=== PATIENT | male | born 1985 | race Caucasian/White ===

== ENCOUNTER → 2016-05-12 | Outpatient (CLI) | payer MEDICAID ==
[2016-05-12 10:10] LABS: ABSOLUTE BASOPHILS # (AUTO) 0.1 10^3/uL (0.0-0.2); ABSOLUTE EOSINOPHILS # (AUTO) 0.2 10^3/uL (0.0-0.6); ABSOLUTE MONOCYTES (AUTO) 0.7 10^3/uL (0.1-1.4); ABSOLUTE NEUT (AUTO) 2.8 10^3/uL (1.7-8.2); EOSINOPHILS % (AUTO) 3.7 % (0-6); HEMOGLOBIN 17.7 g/dL (13.5-17.0); HGB HCT DIFFERENCE 3.1; LYMPHOCYTES % (AUTO) 34.2 % (13-45); MEAN CORPUSCULAR HEMOGLOBIN 30.5 pg (27.0-33.4); MEAN CORPUSCULAR HGB CONC 35.3 g/dL (32.0-36.0); MEAN CORPUSCULAR VOLUME 86 fl (80-97); MONOCYTES % (AUTO) 11.6 % (3-13); RED BLOOD COUNT 5.79 10^6/uL (4.35-5.55); RED CELL DISTRIBUTION WIDTH 13.9 % (11.5-14.0); SEGMENTED NEUTROPHILS % (AUTO) 49.5 % (42-78); WHITE BLOOD COUNT 5.7 10^3/uL (4.0-10.5)
[2016-05-12 10:26] LABS: ALANINE AMINOTRANSFERASE 48 U/L (21-72); ALBUMIN 4.2 g/dL (3.5-5.0); ALKALINE PHOSPHATASE 100 U/L (38-126); ANION GAP 10 (5-19); ASPARTATE AMINO TRANSFERASE 31 U/L (17-59); BLOOD UREA NITROGEN 17 mg/dL (7-20); CALCIUM 9.6 mg/dL (8.4-10.2); CARBON DIOXIDE 25 mmol/L (22-30); CHLORIDE 103 mmol/L (98-107); CREATININE RESULT 1.03 mg/dL (0.52-1.25); Direct HDL 38 mg/dL (>40); GLUCOSE 86 mg/dL (75-110); POTASSIUM 4.3 mmol/L (3.6-5.0); SODIUM 138.3 mmol/L (137-145); TOTAL PROTEIN 7.9 g/dL (6.3-8.2); TRIGLYCERIDES 220 mg/dL (<150)
[2016-05-12 10:38] LABS: DIRECT LDL 115 mg/dL (<100)
== END ==
LOC: OD 08:51
DX: R06.02 Shortness of breath (principal); M54.5 Low back pain; Z79.899 Other long term (current) drug therapy
CPT/HCPCS: 36415; 71020; 72110; 80053; 80061; 83036; 84443; 85025

== ENCOUNTER → 2016-05-26 | Outpatient (CLI) | payer MEDICAID ==
[2016-05-26 09:38] LABS: FREE T3 3.64 pg/mL (2.77-5.27)
== END ==
LOC: OD 08:04
DX: E03.9 Hypothyroidism, unspecified (principal); E66.9 Obesity, unspecified; Z79.899 Other long term (current) drug therapy
CPT/HCPCS: 36415; 84439; 84481; 86376

== ENCOUNTER 2016-06-25 23:03 | Emergency (ER) | payer MEDICAID ==
--- NOTE | 2016-06-26 04:42 | ER Document Report ---
HPI - HPI Patient complains to provider of: upper back pain, chronic pilonidial cyst Onset: Other Quality of pain: Achy Severity: Severe Pain Level: 5 Context: Patient presents to the emergency department with complaints of upper back pain and chronic pilonidal cyst. He reports he is scheduled for surgery for the pilonidal cyst on July 03 for the pilonidal cyst. He also reports that 2 months ago his upper back started hurting. He reports it hurts most when upon waking. He reports after that after he moves around in the pain decreases. Denies trauma. Denies fever vomiting diarrhea. Denies trauma. Denies recent lifting something heavy. Denies fever vomiting diarrhea. Associated Symptoms: None Exacerbated by: Other - sleeping Relieved by: Other - stretching, moving around Similar symptoms previously: Yes Recently seen / treated by doctor: Yes - DERM Skin Color: Normal Past Medical History - General Information source: Patient - Social History Smoking Status: Current Every Day Smoker Cigarette use (# per day): Yes Frequency of alcohol use: None Drug Abuse: None Lives with: Family Family History: Reviewed & Not Pertinent Patient has suicidal ideation: No Patient has homicidal ideation: No Renal/ Medical History: Denies: Hx Peritoneal Dialysis GI Medical History: Reports: Hx Ulcer Skin Medical History: Denies Hx MRSA - pilonidial cyst Past Surgical History: Reports: Hx Abdominal Surgery - intestines - Immunizations Hx Diphtheria, Pertussis, Tetanus Vaccination: No Vertical Provider Document - CONSTITUTIONAL Agree With Documented VS: Yes Exam Limitations: No Limitations General Appearance: WD/WN, No Apparent Distress - INFECTION CONTROL TRAVEL OUTSIDE OF THE [place] IN LAST 30 DAYS: No - HEENT HEENT: Atraumatic, Normocephalic - NECK Neck: Normal Inspection, Supple. negative: Lymphadenopathy-Right - RESPIRATORY Respiratory: Breath Sounds Normal, No Respiratory Distress O2 Sat by Pulse Oximetry: 98 - CARDIOVASCULAR Cardiovascular: Regular Rate, Regular Rhythm - GI/ABDOMEN Gastrointestinal: Abdomen Soft, Abdomen Non-Tender - BACK Back: Normal Inspection - No obvious deformity good distal movement and sensation no weakness patient complains of upper back pain between his shoulder blades. Patient reports he's had the pain for the past 2 weeks but it's increased in the past 2 days. Course - Re-evaluation Re-evalutation: 06/26/16 Patient was instructed on his results of his recent chest x-ray. He was also instructed on the importance of Tylenol follow-up with his primary care provider for evaluation. He verbalized understanding to all instructions. - Vital Signs Vital signs: Temp Pulse Resp BP Pulse Ox 97.6 F 74 18 127/76 H 98 06/25/16 23:13 06/25/16 23:13 06/25/16 23:13 06/25/16 23:13 06/25/16 23:13 Discharge - Discharge Clinical Impression: Upper back pain, Elevated blood pressure reading Condition: Stable Disposition: HOME, SELF-CARE Instructions: Ice Packs ([facility]), Warm Packs ([facility]), Acetaminophen Additional Instructions: *You have been evaluated for upper back pain, elevated blood pressure reading *Take tylenol as indicated *Ice packs/ heat packs as indicated *Follow up with your primary care provider within one week for recheck *Return to ED for worsening condition, changes, needs Monitor your blood pressure. Your blood pressure was elevated today. This may be because you were anxious, in pain or because you need medication. It is important to follow up with your primary care provider for full evaluation. Forms: Elevated Blood Pressure Referrals: JUAREZ REYNOSO PA-C [Primary Care Provider] - Follow up in 1 week
[2016-06-26 06:05] VITALS: BP 129/83
== END 2016-06-26 04:51 | disposition home or self-care (01) ==
LOC: ER 23:03
DX: M54.89 Other dorsalgia (principal); L05.91 Pilonidal cyst without abscess; R03.0 Elevated blood-pressure reading, without diagnosis of hypertension; F17.210 Nicotine dependence, cigarettes, uncomplicated
CPT/HCPCS: 99283

== ENCOUNTER 2016-07-23 10:56 | Day surgery (SDC) | payer MEDICAID ==
[2016-07-19 11:18] LABS: HEMOGLOBIN 16.4 g/dL (13.5-17.0); HGB HCT DIFFERENCE 3.2; MEAN CORPUSCULAR HEMOGLOBIN 30.8 pg (27.0-33.4); MEAN CORPUSCULAR HGB CONC 35.5 g/dL (32.0-36.0); MEAN CORPUSCULAR VOLUME 87 fl (80-97); RED BLOOD COUNT 5.31 10^6/uL (4.35-5.55); RED CELL DISTRIBUTION WIDTH 13.9 % (11.5-14.0); WHITE BLOOD COUNT 5.4 10^3/uL (4.0-10.5)
[2016-07-19 11:49] LABS: ANION GAP 14 (5-19); BLOOD UREA NITROGEN 15 mg/dL (7-20); CALCIUM 9.5 mg/dL (8.4-10.2); CARBON DIOXIDE 23 mmol/L (22-30); CHLORIDE 105 mmol/L (98-107); CREATININE RESULT 0.89 mg/dL (0.52-1.25); GLUCOSE 89 mg/dL (75-110); POTASSIUM 4.4 mmol/L (3.6-5.0)
[~2016-07-23 10:56] MED LIST: BACITRACIN INJ 50,000 UNIT VIAL ONE; BUPIVACAINE HCL 0.25 % INJ/PF (2.5 MG/1 ML) 30 ML VIAL ONE; CEFAZOLIN 1 GM/D5W RTU 1 GM/50 ML RTUPB IV PRN; DEXAMETHASONE SOD PHOSPHATE INJ 4 MG/1 ML VIAL ONE; LACTATED RINGERS 1000 ML IV PRN; LIDOCAINE 0.5% INJ-PF (5 MG/ML) 50 ML SDV ONE; LIDOCAINE 0.5% INJ-PF (5 MG/ML) 50 ML SDV SUBCUT PRN; LIDOCAINE 2% INJ-PF (20 MG/ML) 10 ML AMPUL ONE; METOCLOPRAMIDE HCL INJ/PF 10 MG/2 ML SDV ONE; METRONIDAZOLE 500 MG/NS RTU 100 ML IV PRN; ONDANSETRON HCL INJ/PF 4 MG/2 ML SDV ONE; SUCCINYLCHOLINE CHLORIDE INJ 200 MG/10 ML VIAL ONE
[2016-07-23] MEDS ORDERED: VANCOMYCIN HCL 500 MG in DEXTROSE 5%-WATER 100 ML IV PRN (11:01)
[2016-07-23] MEDS ORDERED: MIDAZOLAM 2 MG/2 ML INJ ONE (13:35)
[2016-07-23] MEDS ORDERED: FENTANYL CITRATE INJ/PF 250 MCG/5 ML AMPULE ONE (13:35)
[2016-07-23] MEDS ORDERED: IBUPROFEN INJ 800 MG/8 ML VIAL IV ONE (13:36)
[2016-07-23] MEDS ORDERED: PROPOFOL INJ 200 MG/20 ML VIAL IV ONE (13:36)
[2016-07-23] MEDS ORDERED: OXYCODONE-ACETAMINOPHEN 5-325 MG TABLET PO PRN ×2 (14:05)
[2016-07-23] MEDS ORDERED: FENTANYL CITRATE INJ/PF 100 MCG/2 ML AMPUL IV PRN ×3 (14:05)
[2016-07-23] MEDS ORDERED: MORPHINE SULFATE 10 MG/ML INJ IV PRN (14:05)
[2016-07-23] MEDS ORDERED: DIPHENHYDRAMINE HCL 50 MG/ML VIAL IV PRN (14:05)
[2016-07-23] MEDS ORDERED: MEPERIDINE HCL/PF INJ 25 MG/1 ML DISP.SYRIN IV PRN (14:05)
[2016-07-23] MEDS ORDERED: ONDANSETRON HCL INJ/PF 4 MG/2 ML SDV IV PRN (14:05)
[2016-07-23] MEDS ORDERED: PROMETHAZINE HCL INJ 25 MG/1 ML VIAL IV PRN ×2 (14:05)
[2016-07-23] MEDS ORDERED: DEXMEDETOMIDINE INJ 80 MCG/20 ML VIAL IV ONE (14:55)
--- NOTE | 2016-07-23 15:29 | PDOC DISCHARGE SUMMARY ---
Discharge Summary (SDC) - Discharge Final Diagnosis: Recurrent pilonidal cyst infection. Date of Surgery: 07/23/16 Discharge Date: 07/23/16 Condition: Good Treatment or Instructions: #1 activities within moderation encouraged. #2 follow up in my office by appointment in about 1 week. Call for appointment. #3 the wounds covered clean and dry until office visit. Empty Robert-Newton drain as needed. #4 hold off on school/work until evaluation in office. #5 may shower in 48 hours, keep operated area as dry as possible. #6 discharge from ambulatory when ASU criteria met. #7 medications per medication reconciliation sheet. #8 Percocet by prescription.. Toradol by prescription Also may have one Percocet up to every 2 hours when necessary for pain greater than 4 out of 10 while in the ASU Prescriptions: Ketorolac Tromethamine [Toradol 10 mg Tablet] 10 mg PO Q8HP PRN #9 tablet PRN Reason: Oxycodone HCl/Acetaminophen [Percocet 5-325 mg Tablet] 1 tab PO ASDIR PRN #15 tab PRN Reason: Discharge Diet: As Tolerated Respiratory Treatments at Home: Deep Breathing/Coughing Discharge Activity: Activity As Tolerated Report the Following to Your Physician Immediately: Shortness of Breath, Unusual Bleeding
--- NOTE | 2016-07-23 15:32 | Operative Report ---
Operative Report DATE OF SURGERY: 07/23/16 PREOPERATIVE DIAGNOSIS: Recurrent pilonidal cyst infection. POSTOPERATIVE DIAGNOSIS: Recurrent pilonidal cyst infection. OPERATION: Excision of pilonidal cyst with rotational flap. SURGEON: CRISTÓBAL HOLM [employer] CONTENT DIRECTOR: none ANESTHESIA: GA TISSUE REMOVED OR ALTERED: Pilonidal cyst COMPLICATIONS: None ESTIMATED BLOOD LOSS: 20 mL. INTRAOPERATIVE FINDINGS: Of scarred and slightly inflamed tissues and pilonidal punctum. The inflammation slightly more over to the right side. Complete extirpation of the involved tissues with remaining healthy looking tissue. Tension-free closure elimination of the buttock left in this area. Plastic approximation of skin. Disease process seems to be limited to an area about 1.5 cm across and about 6 cm in length. PROCEDURE: PROCEDURE: The patient was the positioned prone and the presacral and a generous surrounding area prepared with chlorhexidine and draped out with sterile linen. After the"universal time-out", in which it was confirmed that the patient [ did receive antibiotic], the procedure commenced. The patient was appropriately anesthetized. The lesion was sketched in marking ink, as well as the proposed incision. A dilute solution of local anesthesia was generously infiltrated in the skin and subcutaneous tissues above and around the mass. An incision was made vertically and in an oval fashion so as to include the major area of inflammation as well as the midline crypts.. This went through to the subcutaneous tissues and down to just above the presacral fascia. Dissection now proceeded in the subcutaneous tissue circumferentially around the mass and then finally posterior to it. In this way the entire mass was removed and sent for pathology. Rotation flaps were now dissected in the deep subcutaneous plane mostly on the opposite to the lesion, in this way the skin and subcutaneous tissues were rotated across the midline. Meticulous hemostasis was secured in the wound, using cautery and also suture ligatures of 3-0 PDS.. [ The wound was irrigated once more with sterile saline solution]. A 15 [place] Gregg drain was now inserted through a separate superior lateral renae and its suction port placed in the depths of the wound. The wound was now closed in layers. First with 3-0 PDS vertical mattress sutures which were placed at intervals of about 2 cm was to eradicate the buttock cleft and to gently chen the skin. The edges themselves were meticulously reapproximated with a continuous suture of 4-0 Monocryl. A sterile dressing was applied and the procedure concluded.
[2016-07-23 17:13] VITALS: BP 118/82
[2016-07-24] MEDS ORDERED: VANCOMYCIN HCL 500 MG in DEXTROSE 5%-WATER 100 ML IV PRN (05:00)
== END 2016-07-23 17:10 | disposition home or self-care (01) ==
LOC: OROUT 10:56
PROVIDERS: ATTEND Surgery
PROC: 0HX8XZZ Transfer Buttock Skin, External Approach (ICD-10-PCS; 2016-07-23)
PROC: 0JB90ZZ Excision of Buttock Subcutaneous Tissue and Fascia, Open Approach (ICD-10-PCS; principal; 2016-07-23 13:30)
DX: L05.91 Pilonidal cyst without abscess (principal); E07.9 Disorder of thyroid, unspecified; F17.210 Nicotine dependence, cigarettes, uncomplicated; Z88.1 Allergy status to other antibiotic agents; Z88.0 Allergy status to penicillin; Z87.11 Personal history of peptic ulcer disease; Z79.899 Other long term (current) drug therapy
CPT/HCPCS: 36415; 85027; 80048; 11772; J2250; J3490 ×3; J1100; J3010; J2765; J0330; J2405; J3370; S0020; J2704; 300; 88305; J1741

== ENCOUNTER 2017-02-18 14:59 | Emergency (ER) | payer SELFPAY ==
[2017-02-18] MEDS ORDERED: BUTALB/ACETAMINOPHEN/CAFFEINE 1 TAB EACH PO ONE (16:39)
--- NOTE | 2017-02-18 18:32 | RADIOLOGY REPORT (SQ) ---
EXAM DESCRIPTION: CT HEAD WITHOUT COMPLETED DATE/TIME: 02/18/2017 5:32 pm REASON FOR STUDY: pain COMPARISON: None. TECHNIQUE: Axial images acquired through the brain without intravenous contrast. Images reviewed wi th bone, brain and subdural windows. Images stored on PACS. All CT scanners at this facility use dose modulation, iterative reconstruction, and/or weight based d osing when appropriate to reduce radiation dose to as low as reasonably achievable (ALARA). [facility]: Dose Right [facility]: CareDose [facility]: Dose Right [facility]: Teradose 4D [facility]: mySBX RADIATION DOSE: CT Rad equipment meets quality standard of care and radiation dose reduction techniq ues were employed. CTDIvol: 64.6 mGy. DLP: 1034 mGy-cm. mGy. LIMITATIONS: None. FINDINGS: VENTRICLES: Normal size and contour. CEREBRUM: No masses. No hemorrhage. No midline shift. No evidence for acute infarction. Normal gra y/white matter differentiation. No areas of low density in the white matter. CEREBELLUM: No masses. No hemorrhage. No alteration of density. No evidence for acute infarction. EXTRAAXIAL SPACES: No fluid collections. No masses. ORBITS AND GLOBE: No intra- or extraconal masses. Normal contour of globe without masses. CALVARIUM: No fracture. PARANASAL SINUSES: Mucoperiosteal changes are present in both maxillary sinuses and in some of the et hmoid cells. SOFT TISSUES: No mass or hematoma. OTHER: No other significant finding. IMPRESSION: Sinus disease with no acute intracranial findings. EVIDENCE OF ACUTE STROKE: NO. COMMENT: Quality ID # [id number]: Final reports with documentation of one or more dose reduction techniques (e.g., Automated exposure control, adjustment of the mA and/or kV according to patient size, use of iterative reconstruction technique) TECHNICAL DOCUMENTATION: JOB ID: [id number] [employer]- All Rights Reserved
--- NOTE | 2017-02-18 19:16 | ER Document Report ---
ED General - General Chief Complaint: Headache Stated Complaint: HEADACHE/NOSE BLEED Time Seen by Provider: 02/18/17 16:39 Mode of Arrival: Ambulatory Information source: Patient Notes: Patient reports left-sided headache with some nosebleeds. He has had this for approximate 3 days. It is moderate to severe. It is constant. Nothing makes it better or worse. He states he has heard some "squeaking" in his sinuses. He denies any congestion or sneezing. He denies any fevers. There is no radiation of the pain. No diarrhea. He has had some vomiting. TRAVEL OUTSIDE OF THE [place] IN LAST 30 DAYS: No - Related Data Allergies/Adverse Reactions: ibuprofen Allergy (Verified 07/13/16 11:35) Penicillins Allergy (Verified 07/13/16 11:35) Past Medical History - General Information source: Patient - Social History Smoking Status: Current Every Day Smoker Frequency of alcohol use: Occasional Family History: Reviewed & Not Pertinent Patient has suicidal ideation: No Patient has homicidal ideation: No - Past Medical History Cardiac Medical History: Denies: Hx Coronary Artery Disease, Hx Heart Attack, Hx Hypertension Pulmonary Medical History: Denies: Hx Asthma, Hx Bronchitis, Hx COPD, Hx Pneumonia Neurological Medical History: Denies: Hx Cerebrovascular Accident, Hx Seizures Renal/ Medical History: Denies: Hx Peritoneal Dialysis GI Medical History: Reports: Hx Ulcer Musculoskeltal Medical History: Denies Hx Arthritis Skin Medical History: Denies Hx MRSA - pilonidial cyst Past Surgical History: Reports: Hx Abdominal Surgery - intestines - Immunizations Hx Diphtheria, Pertussis, Tetanus Vaccination: Yes - 2013 Review of Systems - Review of Systems Constitutional: denies: Chills, Fever Cardiovascular: denies: Chest pain, Palpitations Respiratory: denies: Cough, Short of breath -: Yes All other systems reviewed and negative Physical Exam - Vital signs Vitals: Temp Pulse Resp BP Pulse Ox 98.2 F 84 16 146/85 H 98 02/18/17 15:36 02/18/17 15:36 02/18/17 15:36 02/18/17 15:36 02/18/17 15:36 Interpretation: Hypertensive - General General appearance: Appears well, Alert - HEENT Head: Normocephalic, Atraumatic Eyes: Normal Pupils: PERRL - Respiratory Respiratory status: No respiratory distress Chest status: Nontender Breath sounds: Normal Chest palpation: Normal - Cardiovascular Rhythm: Regular Heart sounds: Normal auscultation Murmur: No - Abdominal Inspection: Normal Distension: No distension Bowel sounds: Normal Tenderness: Nontender Organomegaly: No organomegaly - Back Back: Normal, Nontender - Extremities General upper extremity: Normal inspection, Nontender, Normal color, Normal ROM , Normal temperature General lower extremity: Normal inspection, Nontender, Normal color, Normal ROM , Normal temperature, Normal weight bearing. No: Lavelle's sign - Neurological Neuro grossly intact: Yes Cognition: Normal Orientation: AAOx4 Eleno Coma Scale Eye Opening: Spontaneous Eleno Coma Scale Verbal: Oriented Eleno Coma Scale Motor: Obeys Commands Eleno Coma Scale Total: 15 Speech: Normal Motor strength normal: LUE, RUE, LLE, RLE Sensory: Normal - Psychological Associated symptoms: Normal affect, Normal mood - Skin Skin Temperature: Warm Skin Moisture: Dry Skin Color: Normal Course - Vital Signs Vital signs: Temp Pulse Resp BP Pulse Ox 98.2 F 84 16 146/85 H 98 02/18/17 15:36 02/18/17 15:36 02/18/17 15:36 02/18/17 15:36 02/18/17 15:36 - Diagnostic Test Radiology reviewed: Image reviewed, Reports reviewed - Patient's head CT shows evidence of sinusitis. Discharge - Discharge Clinical Impression: Acute sinusitis Qualifiers: Sinusitis location: maxillary Recurrence: non-recurrent Qualified Code(s): J01.00 - Acute maxillary sinusitis, unspecified Condition: Stable Disposition: HOME, SELF-CARE Instructions: Oral Narcotic Medication ([facility]), Sinusitis ([facility]) Additional Instructions: Please call your primary care physician first thing in the morning to arrange follow-up. Your blood pressure is elevated. Please have this rechecked within 1 week by your doctor. Prescriptions: Cefdinir 300 mg PO BID 10 Days #20 capsule Hydrocodone/Acetaminophen [Trinity 5-325 mg Tablet] 1 tab PO Q6 PRN #12 tablet PRN Reason: Forms: Elevated Blood Pressure, Return to Work Referrals: JUAN CARLOS LARRY MD [COMMUNITY BASED STAFF] - Follow up as needed
[2017-02-18 19:31] VITALS: BP 127/78
== END 2017-02-18 19:28 | disposition home or self-care (01) ==
LOC: ER 14:59
DX: J01.00 Acute maxillary sinusitis, unspecified (principal); R51 Headache; R04.0 Epistaxis; F17.200 Nicotine dependence, unspecified, uncomplicated
CPT/HCPCS: 99284; 70450; J3490

== ENCOUNTER 2017-05-09 11:14 | Emergency (ER) | payer SELFPAY ==
[2017-05-09 11:22] VITALS: BP 140/76
[2017-05-09] MEDS ORDERED: IPRATROPIUM/ALBUTEROL 0.5-2.5 MG/3 ML AMPUL NEB ONE (12:01)
[2017-05-09] MEDS ORDERED: DEXAMETHASONE SOD PHOS INJ 10 MG/1 ML VIAL IM ONE (12:02)
--- NOTE | 2017-05-09 12:06 | ER Document Report ---
HPI - HPI Pain Level: Denies Notes: Patient is a 27-year-old female who presents to the ED complaining of nasal congestion/discharge, dry nonproductive cough, subjective fever, wheeze, body ache 2 days. Patient states that she is still eating and drinking without difficulties, but does have a decreased p.o. intake. He is still urinating normally having normal bowel movements. Patient has not been using over-the- counter meds for symptoms. He denies any significant past medical history including cardiopulmonary history and immunocompromised conditions. Patient denies IV drug use. + smoker. Denies any current headache, neck pain, sore throat, chest pain, palpitations, syncope, shortness of breath, dyspnea, abdominal pain, nausea/vomiting/diarrhea, urinary retention, dysuria, hematuria , or rash. - ROS Systems Reviewed and Negative: Yes All other systems reviewed and negative Past Medical History - Social History Smoking Status: Current Every Day Smoker Family History: Reviewed & Not Pertinent - Past Medical History Cardiac Medical History: Denies: Hx Coronary Artery Disease, Hx Heart Attack, Hx Hypertension Pulmonary Medical History: Denies: Hx Asthma, Hx Bronchitis, Hx COPD, Hx Pneumonia Neurological Medical History: Denies: Hx Cerebrovascular Accident, Hx Seizures Renal/ Medical History: Denies: Hx Peritoneal Dialysis GI Medical History: Reports: Hx Ulcer Musculoskeltal Medical History: Denies Hx Arthritis Skin Medical History: Denies Hx MRSA - pilonidial cyst Past Surgical History: Reports: Hx Abdominal Surgery - intestines - Immunizations Hx Diphtheria, Pertussis, Tetanus Vaccination: Yes - 2013 Vertical Provider Document - CONSTITUTIONAL Agree With Documented VS: Yes Notes: PHYSICAL EXAMINATION: GENERAL: Well-appearing, well-nourished and in no acute distress. A&Ox4. Answers questions appropriately. Moves comfortably w/o notable distress HEAD: Atraumatic, normocephalic. EYES: Pupils equal round and reactive to light, extraocular movements intact, sclera anicteric, conjunctiva are normal. ENT: EAC clear b/l. TM's intact b/l without erythema, fluid, or perforation. Nares patent and with clear discharge. oropharynx no erythema without exudates. 1+ tonsilar hypertrophy without erythema or exudate. No palatine shift. Uvula midline. No tongue protrusion. No drooling, hoarseness, or airway compromise. Moist mucous membranes. No sinus tenderness. NECK: Normal range of motion, supple without lymphadenopathy. No rigidity/ meningismus. LUNGS: wheeze b/l. No retractions HEART: Regular rate and rhythm without murmurs, rubs, gallops. ABDOMEN: Soft, nontender, nondistended abdomen. No guarding, no rebound. No masses appreciated. Normal bowel sounds present. No CVA tenderness bilaterally. No hepatosplenomegaly. NEUROLOGICAL: Normal speech, normal gait. Normal sensory, motor exams PSYCH: Normal mood, normal affect. SKIN: Warm, Dry, normal turgor, no rashes or lesions noted. - INFECTION CONTROL TRAVEL OUTSIDE OF THE [place] IN LAST 30 DAYS: No - RESPIRATORY O2 Sat by Pulse Oximetry: 95 Course - Re-evaluation Re-evalutation: 05/09/17 13:20 Patient is an afebrile, well-hydrated, 32 year-old male who presents to the ED with acute URI, suspect influenza. Vitals are stable. PE is otherwise unremarkable. CXR unremarkable for acute pathology. No other labs or imaging warranted at this time based on H&P. Patient has no significant cardiopulmonary or immunocompromised medical conditions. Duoneb and Decadron given today. Patient's lung sounds improved b/l without tachycardia, hypoxia, or tachypnea. Patient is tolerating p.o. without any difficulties. Thoroughly reviewed the risks, benefits, potential side effects, estimated cost without insurance with patient. After thorough review, patient would like Tamiflu at this time. Low suspicion for any meningitis, sepsis, peritonsillar/pharyngeal abscess, respiratory compromise, severe dehydration, or other emergent systemic condition at this time. Patient is aware this condition can change from initial presentation and he needs to monitor symptoms closely. Conservative measures otherwise for symptoms. Recheck with your PCM in 3-5 days. Return to the ED with any worsening/concerning symptoms otherwise as reviewed in discharge. Patient is in agreement. - Vital Signs Vital signs: Temp Pulse Resp BP Pulse Ox 97.4 F 100 18 140/76 H 95 05/09/17 11:20 05/09/17 11:20 05/09/17 11:20 05/09/17 11:20 05/09/17 11:20 Discharge - Discharge Clinical Impression: Acute URI, Influenza Condition: Stable Disposition: HOME, SELF-CARE Instructions: Influenza ([facility]), Upper Respiratory Illness ([facility]) Additional Instructions: Maintain adequate fluid intake Take meds as directed tylenol/ibuprofen as needed over the counter cold medication as needed for symptoms Humidified air may help Wash your hands regularly Wear a mask when coughing F/u: with your PCM in 3-5 days for a recheck Return to the ED with any fever, worsening pain, chest pain, palpitations, syncope, worsening KHOURY, neck pain/stiffness, shortness of breath, wheezing, drooling, trouble swallowing/breathing, abdominal pain, n/v/d, rash, or worsening/concerning symptoms otherwise. Prescriptions: Albuterol Sulfate [Proair HFA Inhalation Aerosol 8.5 gm MDI] 2 puff IH Q4H PRN # 1 mdi PRN Reason: Oseltamivir Phosphate [Tamiflu 75 mg Capsule] 75 mg PO BID #10 capsule Forms: Elevated Blood Pressure, Smoking Cessation Education Referrals: [facility] [Provider Group] - Follow up as needed [facility] [Provider Group] - Follow up as needed
--- NOTE | 2017-05-09 13:06 | RADIOLOGY REPORT (SQ) ---
EXAM DESCRIPTION: CHEST PA/LAT COMPLETED DATE/TIME: 05/09/2017 12:52 pm REASON FOR STUDY: cough, wheeze COMPARISON: None. EXAM PARAMETERS: NUMBER OF VIEWS: two views TECHNIQUE: Digital Frontal and Lateral radiographic views of the chest acquired. RADIATION DOSE: NA LIMITATIONS: none FINDINGS: LUNGS AND PLEURA: No opacities, masses or pneumothorax. No pleural effusion. MEDIASTINUM AND HILAR STRUCTURES: No masses or contour abnormalities. HEART AND VASCULAR STRUCTURES: Heart normal size. No evidence for failure. BONES: No acute findings. HARDWARE: None in the chest. OTHER: No other significant finding. IMPRESSION: NO SIGNIFICANT RADIOGRAPHIC FINDING IN THE CHEST. TECHNICAL DOCUMENTATION: JOB ID: [id number] [employer]- All Rights Reserved
== END 2017-05-09 13:55 | disposition home or self-care (01) ==
LOC: ER 11:14
DX: J11.1 Influenza due to unidentified influenza virus with other respiratory manifestations (principal); R05 Cough; R50.9 Fever, unspecified; R06.2 Wheezing; F17.200 Nicotine dependence, unspecified, uncomplicated
CPT/HCPCS: 94640; 99283; 96372; 71046; J1100; J7620

== ENCOUNTER 2017-09-11 08:10 | Emergency (ER) | payer SELFPAY ==
[2017-09-11] MEDS ORDERED: CEPHALEXIN 500 MG CAPSULE PO ONE (08:47)
[2017-09-11] MEDS ORDERED: PREDNISONE 20 MG TABLET PO ONE (08:47)
[2017-09-11] MEDS ORDERED: FAMOTIDINE 20 MG TABLET PO ONE (08:47)
[2017-09-11] MEDS ORDERED: HYDROXYZINE HCL 10 MG TABLET PO ONE (08:48)
--- NOTE | 2017-09-11 08:52 | ER Document Report ---
ED Skin Rash/Insect Bite/Abscs - General Chief Complaint: Rash Stated Complaint: POSSIBLE ALLERGIC REACTION Time Seen by Provider: 09/11/17 08:32 Mode of Arrival: Ambulatory Information source: Patient Notes: Patient is a 32-year-old male who presents to the ER today for rash to the palms of both of his hands. Patient states that started as a insect bite/ blister to the center of the palm of the right hand. He states that he started putting Goldbond lidocaine on the palm of the hand because the bug bite/blister was painful, then he started to get redness around the bug bite and also to the palm of the left hand as well. Patient denies using any other medications over- the-counter, putting anything else on the palms of the hands, he denies any rash anywhere else, difficulty breathing, new foods or soaps that he knows of. Patient states that the hands are very painful and itchy. TRAVEL OUTSIDE OF THE [place] IN LAST 30 DAYS: No - Related Data Allergies/Adverse Reactions: ibuprofen Allergy (Verified 09/11/17 08:11) Penicillins Allergy (Verified 09/11/17 08:11) sulfamethoxazole [From Bactrim] Allergy (Verified 09/11/17 08:11) trimethoprim [From Bactrim] Allergy (Verified 09/11/17 08:11) Past Medical History - General Information source: Patient - Social History Smoking Status: Current Every Day Smoker Frequency of alcohol use: Occasional Drug Abuse: None Family History: Reviewed & Not Pertinent Patient has suicidal ideation: No Patient has homicidal ideation: No - Past Medical History Cardiac Medical History: Denies: Hx Coronary Artery Disease, Hx Heart Attack, Hx Hypertension Pulmonary Medical History: Denies: Hx Asthma, Hx Bronchitis, Hx COPD, Hx Pneumonia Neurological Medical History: Denies: Hx Cerebrovascular Accident, Hx Seizures Renal/ Medical History: Denies: Hx Peritoneal Dialysis GI Medical History: Reports: Hx Ulcer Musculoskeltal Medical History: Denies Hx Arthritis Skin Medical History: Denies Hx MRSA - pilonidial cyst Past Surgical History: Reports: Hx Abdominal Surgery - intestines - Immunizations Hx Diphtheria, Pertussis, Tetanus Vaccination: Yes - 2013 Review of Systems - Review of Systems Constitutional: No symptoms reported EENT: No symptoms reported Cardiovascular: No symptoms reported Respiratory: No symptoms reported Gastrointestinal: No symptoms reported Genitourinary: No symptoms reported Male Genitourinary: No symptoms reported Musculoskeletal: No symptoms reported Skin: See HPI Hematologic/Lymphatic: No symptoms reported Neurological/Psychological: No symptoms reported Physical Exam - Notes Notes: PHYSICAL EXAMINATION: GENERAL: Well-appearing and in no acute distress. HEAD: Atraumatic, normocephalic. EYES: Pupils equal round and reactive to light, extraocular movements intact, sclera anicteric, conjunctiva are normal. ENT: ear canals without erythema or foreign body, TMs pearly guerrero with good bony landmarks, nares patent, oropharynx clear without exudates. Moist mucous membranes. Airway patent, no rashes or lesions to the oropharynx or lips NECK: Normal range of motion, supple without lymphadenopathy LUNGS: CTAB and equal. No wheezes rales or rhonchi. HEART: Regular rate and rhythm without murmurs EXTREMITIES: Normal range of motion, no pitting edema. No cyanosis. NEUROLOGICAL: Cranial nerves grossly intact. Normal sensory/motor exams. PSYCH: Normal mood, normal affect. SKIN: Warm, Dry, normal turgor, right palm with small healed blister to the center of the palm, patches of darker erythema to the palm of the right hand, not necessarily circumferential to the heel blister, less patches of darker erythema to the palm of the left hand, no tenderness to palpation Course - Re-evaluation Re-evalutation: 09/11/17 11:37 I believe that patient's rash is likely a reaction to the Goldbond lidocaine that he has been using, it does not appear to be cellulitic and is on both palms , right worse than left, no drainage from the insect bite, patient states that his pain is 5 out of 5 although he does not appear to be in any pain. Patient wanted something for pain but I do not feel that this rash warrants pain medication. I will provide patient with hydroxyzine for the itching, Keflex to cover for infection as it did start with a possible break to the skin and prednisone as it may be a local reaction to the Goldbond lidocaine. I advised patient to stop using Gold Vargas with lidocaine. Discharge - Discharge Clinical Impression: Rash of hands Condition: Stable Disposition: HOME, SELF-CARE Additional Instructions: Return immediately for any new or worsening symptoms. Follow up with primary care provider, call tomorrow to make followup appointment. Prescriptions: Cephalexin Monohydrate [Keflex 500 mg Capsule] 500 mg PO BID 7 Days #14 capsule Hydroxyzine HCl 25 mg PO Q8 PRN #30 tablet PRN Reason: Prednisone [Deltasone 20 mg Tablet] 3 tab PO DAILY 5 Days tablet Forms: Return to Work
== END 2017-09-11 09:04 | disposition home or self-care (01) ==
LOC: ER 08:10
DX: R21 Rash and other nonspecific skin eruption (principal); S60.561A Insect bite (nonvenomous) of right hand, initial encounter; W57.XXXA Bitten or stung by nonvenomous insect and other nonvenomous arthropods, initial encounter; Z88.6 Allergy status to analgesic agent; Z88.0 Allergy status to penicillin; Z88.1 Allergy status to other antibiotic agents; F17.200 Nicotine dependence, unspecified, uncomplicated
CPT/HCPCS: 99282; J7512

== ENCOUNTER 2017-09-21 04:35 | Emergency (ER) | payer SELFPAY ==
[2017-09-21] MEDS ORDERED: DIPHENHYDRAMINE HCL 25 MG CAPSULE PO ONE (05:16)
--- NOTE | 2017-09-21 06:29 | ER Document Report ---
ED Allergic Reaction - General Chief Complaint: Allergic Reaction Stated Complaint: POSSIBLE ALLERGIC REACTION Time Seen by Provider: 09/21/17 05:07 Mode of Arrival: Ambulatory Information source: Patient Notes: Patient is a 32-year-old male who presents with chief complaint of allergic reaction. Patient reports that he was here approximately 1 week ago and seen for an acute allergic reaction. Patient reports that he stopped taking his prednisone yesterday. Patient reports that when he woke up this morning he had a small patch of hives on his right shoulder and itching to the bottom of his feet. Patient did not take any medications prior to arrival. Patient is unsure what he is allergic to. Patient denies any other medical history. TRAVEL OUTSIDE OF THE [place] IN LAST 30 DAYS: No - Related Data Allergies/Adverse Reactions: ibuprofen Allergy (Verified 09/11/17 08:11) Penicillins Allergy (Verified 09/11/17 08:11) sulfamethoxazole [From Bactrim] Allergy (Verified 09/11/17 08:11) trimethoprim [From Bactrim] Allergy (Verified 09/11/17 08:11) Past Medical History - General Information source: Patient - Social History Smoking Status: Current Every Day Smoker Chew tobacco use (# tins/day): No Frequency of alcohol use: None Drug Abuse: None Family History: Reviewed & Not Pertinent Patient has suicidal ideation: No Patient has homicidal ideation: No - Past Medical History Cardiac Medical History: Denies: Hx Coronary Artery Disease, Hx Heart Attack, Hx Hypertension Pulmonary Medical History: Denies: Hx Asthma, Hx Bronchitis, Hx COPD, Hx Pneumonia Neurological Medical History: Denies: Hx Cerebrovascular Accident, Hx Seizures Renal/ Medical History: Denies: Hx Peritoneal Dialysis GI Medical History: Reports: Hx Ulcer Musculoskeltal Medical History: Denies Hx Arthritis Skin Medical History: Denies Hx MRSA - pilonidial cyst Past Surgical History: Reports: Hx Abdominal Surgery - intestines - Immunizations Hx Diphtheria, Pertussis, Tetanus Vaccination: Yes - 2013 Review of Systems - Review of Systems Constitutional: No symptoms reported EENT: No symptoms reported Cardiovascular: No symptoms reported Respiratory: No symptoms reported Gastrointestinal: No symptoms reported Genitourinary: No symptoms reported Male Genitourinary: No symptoms reported Musculoskeletal: No symptoms reported Skin: See HPI Hematologic/Lymphatic: No symptoms reported Neurological/Psychological: No symptoms reported Physical Exam - Vital signs Vitals: Temp Pulse Resp BP Pulse Ox 97.8 F 88 18 136/87 H 97 09/21/17 04:41 09/21/17 04:41 09/21/17 04:41 09/21/17 04:41 09/21/17 04:41 - Notes Notes: PHYSICAL EXAMINATION: GENERAL: Well-appearing, well-nourished and in no acute distress. HEAD: Atraumatic, normocephalic. EYES: Pupils equal round and reactive to light, extraocular movements intact, sclera anicteric, conjunctiva are normal. ENT: Nares patent, oropharynx clear without exudates. Moist mucous membranes. NECK: Normal range of motion, supple without lymphadenopathy LUNGS: Breath sounds clear to auscultation bilaterally and equal. No wheezes rales or rhonchi. HEART: Regular rate and rhythm without murmurs ABDOMEN: Soft, nontender, nondistended abdomen. No guarding, no rebound. No masses appreciated. Musculoskeletal: Normal range of motion, no pitting or edema. No cyanosis. NEUROLOGICAL: Cranial nerves grossly intact. Normal speech, normal gait. Normal sensory, motor exams PSYCH: Normal mood, normal affect. SKIN: Warm, Dry, normal turgor, hives noted to patient's right shoulder, redness noted to patient's bilateral feet. Course - Re-evaluation Re-evalutation: Patient presents with complaints of allergic reaction. Patient reports that he woke up this morning and noticed that he had a patch of hives on his right shoulder so patient decided to come in and be evaluated. Patient speaking in full and complete sentences and has lung sounds bilaterally with no wheezing. Patient will be given p.o. Benadryl and reevaluated. After administration of p.o. Benadryl, patient's hives are nearly resolved. Patient will be discharged home with information for primary care providers. Patient reports that he would like a prescription for Atarax as he states this makes him less sleepy than Benadryl. She instructed to return to the emergency department if he develops chest pain, shortness of breath, difficulty breathing any other symptom that is concerning to him. - Vital Signs Vital signs: Temp Pulse Resp BP Pulse Ox 97.8 F 88 18 136/87 H 97 09/21/17 04:41 09/21/17 04:41 09/21/17 04:41 09/21/17 04:41 09/21/17 04:41 Discharge - Discharge Clinical Impression: Hives Condition: Stable Disposition: HOME, SELF-CARE Additional Instructions: Acute Urticaria Your hives are due to an allergic reaction. Hives are sometimes accompanied by swelling of the hands, feet and face, hoarseness, and difficulty swallowing or breathing. Hives may be due to exposure to medication, animal dander, foods, infection, or insect bites. Medication allergy is common, even if this same medication caused no problems in the past. Often, the specific allergic agent can't be identified unless repeated episodes occur. Your treatment includes the following: (1) Stop any suspicious medications. This will be discussed with you. (2) Oral antihistamines for the next four to five days (Benadryl, Atarax). (3) Avoid aspirin until the hives completely disappear. (4) Avoid hot baths or showers until the hives are completely gone. Sometimes adrenaline shots or cortisone are required for severe cases of hives. "Allergy shots" are sometimes required. Call the doctor or return if faintness, difficulty swallowing, tightness in the chest, or wheezing occurs. Prescriptions: Hydroxyzine HCl [Atarax 25 mg Tablet] 1 - 2 tab PO QID #25 tablet Referrals: [facility] [Provider Group] - Follow up as needed [facility] [Provider Group] - Follow up as needed
[2017-09-21 06:48] VITALS: BP 134/84
== END 2017-09-21 06:44 | disposition home or self-care (01) ==
LOC: ER 04:35
DX: L50.9 Urticaria, unspecified (principal); F17.200 Nicotine dependence, unspecified, uncomplicated; Z88.6 Allergy status to analgesic agent; Z88.0 Allergy status to penicillin; Z88.1 Allergy status to other antibiotic agents
CPT/HCPCS: 99283

== ENCOUNTER → 2017-09-26 | Outpatient (CLI) | payer OTHER ==
[2017-09-26 13:00] LABS: ABSOLUTE BASOPHILS # (AUTO) 0.1 10^3/uL (0.0-0.2); ABSOLUTE EOSINOPHILS # (AUTO) 0.3 10^3/uL (0.0-0.6); ABSOLUTE LYMPHOCYTES (AUTO) 2.1 10^3/uL (0.5-4.7); ABSOLUTE MONOCYTES (AUTO) 0.6 10^3/uL (0.1-1.4); ABSOLUTE NEUT (AUTO) 3.4 10^3/uL (1.7-8.2); BASOPHILS % (AUTO) 0.8 % (0-2); EOSINOPHILS % (AUTO) 4.6 % (0-6); HEMOGLOBIN 15.8 g/dL (13.5-17.0); LYMPHOCYTES % (AUTO) 32.9 % (13-45); MEAN CORPUSCULAR HEMOGLOBIN 31.7 pg (27.0-33.4); MEAN CORPUSCULAR HGB CONC 35.8 g/dL (32.0-36.0); MEAN CORPUSCULAR VOLUME 89 fl (80-97); MONOCYTES % (AUTO) 8.7 % (3-13); PLATELET COUNT 185 10^3/uL (150-450); RED BLOOD COUNT 4.97 10^6/uL (4.35-5.55); RED CELL DISTRIBUTION WIDTH 13.7 % (11.5-14.0); TOTAL CELLS COUNTED % (AUTO) 100 %; WHITE BLOOD COUNT 6.3 10^3/uL (4.0-10.5)
[2017-09-26 13:19] LABS: ALANINE AMINOTRANSFERASE 55 U/L (21-72); ALBUMIN 4.1 g/dL (3.5-5.0); ALKALINE PHOSPHATASE 100 U/L (38-126); ANION GAP 12 (5-19); ASPARTATE AMINO TRANSFERASE 31 U/L (17-59); BILIRUBIN,DIRECT 0.4 mg/dL (0.0-0.4); BILIRUBIN,TOTAL 0.6 mg/dL (0.2-1.3); BLOOD UREA NITROGEN 19 mg/dL (7-20); CALCIUM 9.3 mg/dL (8.4-10.2); CARBON DIOXIDE 25 mmol/L (22-30); CHLORIDE 109 mmol/L (98-107); GLUCOSE 105 mg/dL (75-110); POTASSIUM 4.1 mmol/L (3.6-5.0); SODIUM 146.4 mmol/L (137-145); TOTAL PROTEIN 7.2 g/dL (6.3-8.2)
== END ==
LOC: CCC 12:14
DX: T78.40XA Allergy, unspecified, initial encounter (principal)
CPT/HCPCS: 36415; 80053; 83036; 84443; 85025; 86592

== ENCOUNTER → 2017-10-04 | Outpatient (CLI) | payer OTHER ==
[2017-10-04 09:49] LABS: CHOLESTEROL 172.06 mg/dL (0-200); TRIGLYCERIDES 142 mg/dL (<150)
[2017-10-04 10:04] LABS: DIRECT LDL 100 mg/dL (<100)
== END ==
LOC: CCC 08:38
DX: T78.40XA Allergy, unspecified, initial encounter (principal)
CPT/HCPCS: 36415; 80061

== ENCOUNTER 2018-01-05 11:14 | Emergency (ER) | payer SELFPAY ==
[2018-01-05] MEDS ORDERED: DIPHENHYDRAMINE HCL 50 MG CAPSULE PO ONE (11:24)
[2018-01-05] MEDS ORDERED: FAMOTIDINE 20 MG TABLET PO ONE (11:24)
[2018-01-05] MEDS ORDERED: EPINEPHRINE INJ/PF 1 MG/1 ML AMPULE IM ONE ×2 (11:24→11:38)
--- NOTE | 2018-01-05 11:24 | ER Document Report ---
ED Medical Screen (RME) - General Chief Complaint: Allergic Reaction Stated Complaint: POSSIBLE ALLERGIC REACTION Time Seen by Provider: 01/05/18 11:19 Notes: Patient is a 32-year-old male that presents to the emergency department for chief complaint of allergic reaction. Patient stated he had a soreness in his throat and voice, and noticed that he had a rash all over his chest and abdomen this morning, he has a history of having significant allergic reactions in the past, so he came straight to the emergency department. ROS: Unless otherwise stated in this report the patient's positive and negative responses for review of systems for constitutional, eyes, ENT, cardiovascular, respiratory, gastrointestinal, neurological, genitourinary, musculoskeletal, and integumentary systems and related systems to the presenting problem are either as stated in the HPI or were not pertinent or were negative for the symptoms and/or complaints related to the presenting medical problem. PHYSICAL EXAMINATION: Vital signs reviewed. GENERAL: Well-appearing, well-nourished and in no acute distress. HEAD: Atraumatic, normocephalic. EYES: Pupils equal round extraocular movements intact, conjunctiva are normal. ENT: Nares patent, tonsillar edema noted, no erythema, uvula midline NECK: Normal range of motion CV: Heart regular rate and rhythm LUNGS: No respiratory distress Musculoskeletal: Normal range of motion NEUROLOGICAL: Normal speech Skin: Diffuse urticaria noted over the patient's thorax and abdomen PSYCH: Normal mood, normal affect. MDM: Patient seen and examined for rapid initial assessment. Vital signs reviewed. A comprehensive ED assessment and evaluation of the patient, analysis of test results and completion of the medical decision making process will be conducted by additional ED providers. *Note is created using voice recognition software and may contain spelling, syntax or grammatical errors. TRAVEL OUTSIDE OF THE [place] IN LAST 30 DAYS: No - Related Data Allergies/Adverse Reactions: ibuprofen Allergy (Verified 01/05/18 11:15) Penicillins Allergy (Verified 01/05/18 11:15) sulfamethoxazole [From Bactrim] Allergy (Verified 01/05/18 11:15) trimethoprim [From Bactrim] Allergy (Verified 01/05/18 11:15) Past Medical History - Past Medical History Cardiac Medical History: Denies: Hx Coronary Artery Disease, Hx Heart Attack, Hx Hypertension Pulmonary Medical History: Denies: Hx Asthma, Hx Bronchitis, Hx COPD, Hx Pneumonia Neurological Medical History: Denies: Hx Cerebrovascular Accident, Hx Seizures Renal/ Medical History: Denies: Hx Peritoneal Dialysis GI Medical History: Reports: Hx Ulcer Musculoskeltal Medical History: Denies Hx Arthritis Skin Medical History: Denies Hx MRSA - pilonidial cyst Past Surgical History: Reports: Hx Abdominal Surgery - intestines - Immunizations Hx Diphtheria, Pertussis, Tetanus Vaccination: Yes - 2013 Physical Exam - Vital signs Vitals: Temp Pulse Resp BP Pulse Ox 97.6 F 101 H 14 138/93 H 98 01/05/18 11:17 01/05/18 11:17 01/05/18 11:17 01/05/18 11:17 01/05/18 11:17 Course - Vital Signs Vital signs: Temp Pulse Resp BP Pulse Ox 97.6 F 101 H 20 142/80 H 95 01/05/18 11:17 01/05/18 11:17 01/05/18 12:00 01/05/18 12:00 01/05/18 12:00 Doctor's Discharge - Discharge Clinical Impression: Acute allergic reaction Condition: Stable Referrals: [facility] [NO LOCAL MD] - Follow up as needed
[2018-01-05] MEDS ORDERED: METHYLPREDNISOLONE INJ 125 MG/2 ML SDV IM ONE (11:25)
--- NOTE | 2018-01-05 11:54 | ER Document Report ---
ED Allergic Reaction - General Chief Complaint: Allergic Reaction Stated Complaint: POSSIBLE ALLERGIC REACTION Time Seen by Provider: 01/05/18 11:19 TRAVEL OUTSIDE OF THE [place] IN LAST 30 DAYS: No - HPI Notes: Patient is a 32-year-old male that presents to the emergency department for chief complaint of Allergic reaction. Patient reports he has had anaphylactic reactions in the past. He has seen an ammonia box tender and was told he is allergic to 7 strains of grass as well as cockroaches. This morning when he woke up he had a burning in the back of his neck and noticed that his throat felt scratchy. He then noticed he had a rash all over his body. He came emergently to the ER. He does not have an EpiPen at home and did not take medicines prior to arriving in the emergency room. Patient denies any worse symptoms since onset waking up this morning but states it is not getting better. He denies any difficulty breathing or lightheadedness. Past Medical History: Duodenal ulcer Past Surgical History: Duodenal ulcer repair Social History: Daily tobacco, occasional alcohol, denies drug use Family History: Reviewed and noncontributory for presenting illness Allergies: Reviewed, see documented allergy list. REVIEW OF SYSTEMS: CONSTITUTIONAL : No fever No chills No diaphoresis No recent illness EENT: No vision changes No congestion sore throat CARDIOVASCULAR: No chest pain No palpitations RESPIRATORY: No shortness of breath No cough No difficulty breathing GASTROINTESTINAL: No abdominal pain No nausea No vomiting No diarrhea GENITOURINARY: No dysuria No hematuria No difficulty urinating MUSCULOSKELETAL: No back pain No leg pain No arm pain SKIN: rashes No lesions LYMPHATIC: No swollen, enlarged glands. NEUROLOGICAL: No lightheadedness No headache No weakness No paresthesias PSYCHIATRIC: No anxiety No depression PHYSICAL EXAMINATION: Vital signs reviewed, nursing noted reviewed. GENERAL: Well-appearing, well-nourished and in no acute distress. HEAD: Atraumatic, normocephalic. EYES: Eyes appear normal, extraocular movements intact, sclera anicteric, conjunctiva are normal. ENT: nares patent. Bilateral tonsillar edema and uvular edema with tonsils almost completely approximated midline, no exudates or erythema. Moist mucous membranes. Able to swallow oral secretions NECK: Normal range of motion, supple without lymphadenopathy LUNGS: Breath sounds clear to auscultation bilaterally and equal. No wheezes rales or rhonchi. HEART: Regular rate and rhythm without murmurs ABDOMEN: Soft, nontender, normoactive bowel sounds. No rebound, guarding, or rigidity. No masses appreciated. EXTREMITIES: Nontender, good range of motion, no pitting or edema. NEUROLOGICAL: No focal neurological deficits. Moves all extremities spontaneously Motor and sensory grossly intact on exam. PSYCH: Normal mood, normal affect. SKIN: Warm, Dry, normal turgor, urticarial rash to torso and lower extremities - Related Data Allergies/Adverse Reactions: ibuprofen Allergy (Verified 01/05/18 11:15) Penicillins Allergy (Verified 01/05/18 11:15) sulfamethoxazole [From Bactrim] Allergy (Verified 01/05/18 11:15) trimethoprim [From Bactrim] Allergy (Verified 01/05/18 11:15) Past Medical History - Social History Smoking Status: Current Every Day Smoker Family History: Reviewed & Not Pertinent - Past Medical History Cardiac Medical History: Denies: Hx Coronary Artery Disease, Hx Heart Attack, Hx Hypertension Pulmonary Medical History: Denies: Hx Asthma, Hx Bronchitis, Hx COPD, Hx Pneumonia Neurological Medical History: Denies: Hx Cerebrovascular Accident, Hx Seizures Renal/ Medical History: Denies: Hx Peritoneal Dialysis GI Medical History: Reports: Hx Ulcer Musculoskeletal Medical History: Denies Hx Arthritis Skin Medical History: Denies Hx MRSA - pilonidial cyst Past Surgical History: Reports: Hx Abdominal Surgery - intestines - Immunizations Hx Diphtheria, Pertussis, Tetanus Vaccination: Yes - 2013 Review of Systems - Review of Systems Notes: Dictated Physical Exam - Vital signs Vitals: Temp Pulse Resp BP Pulse Ox 97.6 F 101 H 14 138/93 H 98 01/05/18 11:17 01/05/18 11:17 01/05/18 11:17 01/05/18 11:17 01/05/18 11:17 - Notes Notes: Dictated Course - Re-evaluation Re-evalutation: 01/05/18 11:55 Vitals reviewed. Nursing notes reviewed. Patient has a significant amount of posterior oropharyngeal edema. He has been given epinephrine 10 minutes prior to my evaluation and is unchanged. He was given a repeat dose of epinephrine for his continued oropharynx edema. Patient also received Pepcid, Benadryl and Solu-Medrol. 01/05/18 14:53 Patient monitored in the emergency room for over 3 hours. He had no worsening of his symptoms. His rash has significantly improved. He has improvement of his oropharyngeal edema but still has some mild tonsillar edema and uvular edema. He is still tolerating his secretions and not having any shortness of breath. He will be given an epinephrine pen prescription for home and was directed on its use. He will be given prednisone for the next few days. Patient will continue taking Benadryl at home as needed. He will return for new or worsening symptoms. Discharged home in stable condition. - Vital Signs Vital signs: Temp Pulse Resp BP Pulse Ox 97.6 F 101 H 20 142/80 H 95 01/05/18 11:17 01/05/18 11:17 01/05/18 12:00 01/05/18 12:00 01/05/18 12:00 Discharge - Discharge Clinical Impression: Acute allergic reaction Qualifiers: Encounter type: initial encounter Qualified Code(s): T78.40XA - Allergy, unspecified, initial encounter Condition: Stable Disposition: HOME, SELF-CARE Instructions: Epinephrine, Acute Allergic Reaction ([facility]) Additional Instructions: Please return to the emergency department if you have any worsening, or concern of your symptoms. Please return to the emergency department if you develop chest pain, difficulty breathing, severe abdominal pain, or ongoing vomiting. Please follow-up with your primary care physician in 2-3 days and any other recommended physicians. If prescribed, take all medications as directed. If you have any questions or concerns do not hesitate to return the emergency department for evaluation. Begin taking prednisone tomorrow. You can take Benadryl at home as directed every 4-6 hours. Prescriptions: Epinephrine [Epipen 2-Solis] 0.3 mg IM ONCE #2 ml Prednisone 40 mg PO DAILY #8 tablet Referrals: [facility] [NO LOCAL MD] - Follow up as needed
[2018-01-05 15:02] VITALS: BP 113/54
== END 2018-01-05 15:02 | disposition home or self-care (01) ==
LOC: ER 11:14
DX: T78.40XA Allergy, unspecified, initial encounter (principal); F17.200 Nicotine dependence, unspecified, uncomplicated
CPT/HCPCS: 99283; 96372; J0171; J2930

== ENCOUNTER 2018-09-24 19:32 | Emergency (ER) | payer SELFPAY ==
[2018-09-24 19:50] LABS: ABSOLUTE BASOPHILS # (AUTO) 0.1 10^3/uL (0.0-0.2); ABSOLUTE EOSINOPHILS # (AUTO) 0.2 10^3/uL (0.0-0.6); ABSOLUTE LYMPHOCYTES (AUTO) 1.7 10^3/uL (0.5-4.7); ABSOLUTE MONOCYTES (AUTO) 0.7 10^3/uL (0.1-1.4); ABSOLUTE NEUT (AUTO) 8.9 10^3/uL (1.7-8.2); BASOPHILS % (AUTO) 0.6 % (0-2); HEMATOCRIT 46.3 % (37.9-51.0); LYMPHOCYTES % (AUTO) 14.5 % (13-45); MEAN CORPUSCULAR HEMOGLOBIN 30.1 pg (27.0-33.4); MEAN CORPUSCULAR HGB CONC 34.5 g/dL (32.0-36.0); MEAN CORPUSCULAR VOLUME 87 fl (80-97); MONOCYTES % (AUTO) 6.2 % (3-13); PLATELET COUNT 200 10^3/uL (150-450); RED BLOOD COUNT 5.31 10^6/uL (4.35-5.55); RED CELL DISTRIBUTION WIDTH 13.6 % (11.5-14.0); SEGMENTED NEUTROPHILS % (AUTO) 76.7 % (42-78); TOTAL CELLS COUNTED % (AUTO) 100 %; WHITE BLOOD COUNT 11.6 10^3/uL (4.0-10.5)
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
[2018-09-24 20:09] LABS: ALANINE AMINOTRANSFERASE 44 U/L (21-72); ALBUMIN 4.5 g/dL (3.5-5.0); ALKALINE PHOSPHATASE 98 U/L (38-126); ANION GAP 9 (5-19); ASPARTATE AMINO TRANSFERASE 29 U/L (17-59); BILIRUBIN,DIRECT 0.2 mg/dL (0.0-0.4); BILIRUBIN,TOTAL 0.5 mg/dL (0.2-1.3); BLOOD UREA NITROGEN 15 mg/dL (7-20); CALCIUM 9.1 mg/dL (8.4-10.2); CARBON DIOXIDE 28 mmol/L (22-30); CHLORIDE 104 mmol/L (98-107); GLUCOSE 97 mg/dL (75-110); POTASSIUM 4.5 mmol/L (3.6-5.0); SODIUM 140.5 mmol/L (137-145); TOTAL PROTEIN 7.8 g/dL (6.3-8.2)
[2018-09-24 20:10] LABS: ALCOHOL < 10 mg/dL (NONE DETECTED)
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
[2018-09-24 21:27] LABS: APPEARANCE,URINE SLIGHTLY-CLOUDY; BILIRUBIN,URINE NEGATIVE (NEGATIVE); COLOR,URINE YELLOW; GLUCOSE, URINE NEGATIVE (NEGATIVE); KETONES,URINE NEGATIVE (NEGATIVE); LEUKOCYTE ESTERASE,URINE SMALL (NEGATIVE); NITRITE,URINE NEGATIVE (NEGATIVE); PROTEIN,URINE NEGATIVE (NEGATIVE); URINE SPECIFIC GRAVITY 1.028
[2018-09-24 21:51] LABS: URINE BARBITURATES SCREEN NEGATIVE; URINE BENZODIAZEPINES SCREEN NEGATIVE; URINE COCAINE SCREEN NEGATIVE; URINE MARIJUANA (THC) SCREEN UNCONFIRMED POSITIVE; URINE METHADONE SCREEN NEGATIVE; URINE PHENCYCLIDINE SCREEN NEGATIVE
--- NOTE | 2018-09-24 23:38 | EKG REPORT ---
SEVERITY:- NORMAL ECG - SINUS RHYTHM : Confirmed by: Korina Mooney 24-Sep-2018 23:37:04
[2018-09-25 00:18] VITALS: BP 144/84
== END 2018-09-25 00:37 ==
LOC: ER 19:32
DX: S09.90XA Unspecified injury of head, initial encounter (principal); R56.9 Unspecified convulsions; W22.01XA Walked into wall, initial encounter
CPT/HCPCS: 36415; 70450; 71045; 72125; 80053; 80307; 81001; 82962; 83735; 84484; 85025; 93005; 93010; 99284

== ENCOUNTER 2018-10-10 18:34 | Emergency (ER) | payer SELFPAY ==
--- NOTE | 2018-10-10 19:58 | RADIOLOGY REPORT (SQ) ---
EXAM DESCRIPTION: CHEST SINGLE VIEW COMPLETED DATE/TIME: 10/10/2018 7:46 pm REASON FOR STUDY: bone tenderness/ shortness of breath COMPARISON: CHEST RADIOGRAPHS 09/24/2018 EXAM PARAMETERS: NUMBER OF VIEWS: One view. TECHNIQUE: Single frontal radiographic view of the chest acquired. RADIATION DOSE: NA LIMITATIONS: None. FINDINGS: LUNGS AND PLEURA: No opacities, masses or pneumothorax. No pleural effusion. MEDIASTINUM AND HILAR STRUCTURES: No masses. Contour normal. HEART AND VASCULAR STRUCTURES: Heart normal in size. Normal vasculature. BONES: No acute findings. HARDWARE: None in the chest. OTHER: No other significant finding. IMPRESSION: NO ACUTE RADIOGRAPHIC FINDING IN THE CHEST. TECHNICAL DOCUMENTATION: JOB ID: [id number] [employer] [facility]- All Rights Reserved Reading location - IP/workstation name: [email or web address]
[2018-10-10 20:53] VITALS: BP 120/68
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
== END 2018-10-10 22:56 | disposition left against medical advice (07) ==
LOC: ER 18:34
DX: R07.81 Pleurodynia (principal); S80.211A Abrasion, right knee, initial encounter; S40.211A Abrasion of right shoulder, initial encounter; Y09 Assault by unspecified means; R07.1 Chest pain on breathing; Z88.8 Allergy status to other drugs, medicaments and biological substances; Z88.0 Allergy status to penicillin; Z88.1 Allergy status to other antibiotic agents; Z53.20 Procedure and treatment not carried out because of patient's decision for unspecified reasons
CPT/HCPCS: 71045; 99281

== ENCOUNTER 2018-10-23 15:36 | Emergency (ER) | payer SELFPAY ==
[2018-10-23] MEDS ORDERED: DEXAMETHASONE SOD PHOS INJ 10 MG/1 ML VIAL IM ONE (16:02)
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
[2018-10-23 16:31] LABS: ABSOLUTE EOSINOPHILS # (AUTO) 0.1 10^3/uL (0.0-0.6); ABSOLUTE LYMPHOCYTES (AUTO) 1.3 10^3/uL (0.5-4.7); ABSOLUTE MONOCYTES (AUTO) 0.8 10^3/uL (0.1-1.4); ABSOLUTE NEUT (AUTO) 13.5 10^3/uL (1.7-8.2); BASOPHILS % (AUTO) 0.2 % (0-2); EOSINOPHILS % (AUTO) 0.5 % (0-6); HEMATOCRIT 48.7 % (37.9-51.0); HEMOGLOBIN 16.8 g/dL (13.5-17.0); LYMPHOCYTES % (AUTO) 8.2 % (13-45); MEAN CORPUSCULAR HEMOGLOBIN 29.9 pg (27.0-33.4); MEAN CORPUSCULAR HGB CONC 34.4 g/dL (32.0-36.0); MEAN CORPUSCULAR VOLUME 87 fl (80-97); MONOCYTES % (AUTO) 5.4 % (3-13); PLATELET COUNT 201 10^3/uL (150-450); RED BLOOD COUNT 5.59 10^6/uL (4.35-5.55); RED CELL DISTRIBUTION WIDTH 13.7 % (11.5-14.0); SEGMENTED NEUTROPHILS % (AUTO) 85.7 % (42-78); TOTAL CELLS COUNTED % (AUTO) 100 %; WHITE BLOOD COUNT 15.7 10^3/uL (4.0-10.5)
[2018-10-23 16:57] LABS: ALANINE AMINOTRANSFERASE 31 U/L (21-72); ALBUMIN 4.4 g/dL (3.5-5.0); ALKALINE PHOSPHATASE 107 U/L (38-126); ANION GAP 9 (5-19); ASPARTATE AMINO TRANSFERASE 24 U/L (17-59); BILIRUBIN,DIRECT 0.3 mg/dL (0.0-0.4); BILIRUBIN,TOTAL 1.2 mg/dL (0.2-1.3); BLOOD UREA NITROGEN 12 mg/dL (7-20); CALCIUM 9.5 mg/dL (8.4-10.2); CARBON DIOXIDE 25 mmol/L (22-30); CHLORIDE 102 mmol/L (98-107); GLUCOSE 97 mg/dL (75-110); POTASSIUM 4.5 mmol/L (3.6-5.0); TOTAL PROTEIN 7.5 g/dL (6.3-8.2)
--- NOTE | 2018-10-23 16:59 | RADIOLOGY REPORT (SQ) ---
EXAM DESCRIPTION: RIBS LEFT W/PA CHEST COMPLETED DATE/TIME: 10/23/2018 4:48 pm REASON FOR STUDY: pain s/p injury left anterior mid ribs COMPARISON: 10/10/2018 TECHNIQUE: Frontal view of the chest and additional views of the left ribs acquired. NUMBER OF VIEWS: Four views LIMITATIONS: None. FINDINGS: FRONTAL CXR: No pneumothorax. No pleural effusion. No atelectasis or infiltrates. RIBS: No displaced rib fractures. No lytic or blastic bony lesions. OTHER: No other significant finding. IMPRESSION: NO PNEUMOTHORAX. NO DISPLACED RIB FRACTURES. COMMENT: SITE OF TRAUMA/COMPLAINT MARKED/STAMP COMPLETED: Yes TECHNICAL DOCUMENTATION: JOB ID: [id number] [employer]- All Rights Reserved Reading location - IP/workstation name: [email or web address]
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
[2018-10-23] MEDS ORDERED: LIDOCAINE 5% (700 MG) TRANSDERMAL ADH..PATCH TP ONE (19:08)
[2018-10-23] MEDS ORDERED: CLINDAMYCIN HCL 150 MG CAPSULE PO ONE (19:08)
[2018-10-23 20:23] VITALS: BP 133/48
== END 2018-10-23 20:23 | disposition home or self-care (01) ==
LOC: ER 15:36
DX: S20.212A Contusion of left front wall of thorax, initial encounter (principal); V28.0XXA Motorcycle driver injured in noncollision transport accident in nontraffic accident, initial encounter; J02.0 Streptococcal pharyngitis; F17.210 Nicotine dependence, cigarettes, uncomplicated; L08.9 Local infection of the skin and subcutaneous tissue, unspecified; R07.81 Pleurodynia; Z88.6 Allergy status to analgesic agent; Z88.0 Allergy status to penicillin; Z88.3 Allergy status to other anti-infective agents
CPT/HCPCS: 99283; 96372; 36415; 87880; 85025; 86308; 80053; 71101; J1100